=== PATIENT | female | born 1935 | race Caucasian/White ===

== ENCOUNTER 2023-12-01 11:58 | Day surgery (SDC) | payer MEDICARE, MEDICAID ==
[2023-11-28 16:21] LABS: BASOPHILS % (AUTO) 0.5 % (0-1); EOSINOPHILS # (AUTO) 0.2 X10'3 (0-0.9); EOSINOPHILS % (AUTO) 3.2 % (0-6); LYMPHOCYTES # (AUTO) 2.2 X10'3 (1.1-4.8); LYMPHOCYTES % (AUTO) 36.5 % (21-51); MEAN CORPUSCULAR HEMOGLOBIN 29.9 PG (27.0-31.0); MEAN CORPUSCULAR HGB CONC 34.3 g/dL (33.0-36.5); MEAN CORPUSCULAR VOLUME 87.4 FL (78-98); MEAN PLATELET VOLUME 7.7 FL (7.4-10.4); MONOCYTES # (AUTO) 0.5 X10'3 (0-0.9); NEUTROPHILS # (AUTO) 3.1 X10'3 (1.8-7.7); NEUTROPHILS % (AUTO) 50.8 % (42-75); PRE OP HEMATOCRIT 39.5 % (35.0-45.0); PRE OP HEMOGLOBIN 13.5 g/dL (12.0-16.0); PRE OP PLATELET COUNT 226 X10'3 (140-440); PRE OP WHITE BLOOD COUNT 6.1 10'3 (4.8-10.8); RED BLOOD COUNT 4.52 X10'6 (4.20-5.60); RED CELL DISTRIBUTION WIDTH 15.5 % (11.5-14.5)
[2023-11-28 16:38] LABS: ALBUMIN 4.2 G/DL (3.4-5.0); ALBUMIN/GLOBULIN RATIO 1.1 (1.1-1.5); ALKALINE PHOSPHATASE 79 IU/L (46-116); BLOOD UREA NITROGEN 27 MG/DL (7-18); BUN/CREATININE RATIO 28.7 (10.0-20.0); CALCIUM 9.7 MG/DL (8.5-10.1); CHLORIDE 103 MMOL/L (99-107); CREATININE 0.94 MG/DL (0.40-0.90); PRE OP ALT 26 U/L (30-65); PRE OP ANION GAP 9 (8-16); PRE OP AST 20 U/L (10-37); PRE OP BILIRUB, TOTAL 0.6 MG/DL (0.0-1.0); PRE OP GLUCOSE 106 MG/DL (70-104); PRE OP SODIUM 140 MMOL/L (135-145); TOTAL CARBON DIOXIDE 28.1 MMOL/L (24-32); TOTAL PROTEIN 8.2 G/DL (6.4-8.2); eGFR 56 ML/MIN
[2023-11-28 16:39] LABS: PRE OP POTASSIUM 3.3 MMOL/L (3.4-5.1)
[~2023-12-01] VITALS: Ht 160 cm; Wt 90.7 kg
[2023-12-01] VITALS (14 sets, daily range): BP systolic 121–139; BP diastolic 58–67; PULSE 60–66; RESP 12–20; TEMP 98.4; O2SAT 92–100
[2023-12-01] MEDS: cefazolin 2gm/D5W 100mL 100 ML IV ONE (05:30)
[~2023-12-01 11:58] MED LIST: AMLO5TAB16 PO; DOCUMENT DATE & TIME OF BETA-BLOCKER PO ONE; FURO20TA4 PO; HYDR12.55 PO; LEVO100T9 PO; MELO-102 PO; METO50TA16 PO; OLME40TA18 PO; POTA20PA40 PO; PRAV20TA4 PO; ringers solution, lacted 1,000 ML IV SCH
[2023-12-01] MEDS ORDERED: morphine 2 MG/ML inj. syringe IV PRN (12:35)
[2023-12-01] MEDS ORDERED: hydrALAZINE 20mg/ml inj. IV PRN (12:35)
[2023-12-01] MEDS ORDERED: ondansetron/PF 4mg/2ml inj IV PRN (12:35)
[2023-12-01] MEDS ORDERED: proCHLORperazine 10 MG/2 ml inj IV PRN (12:35)
[2023-12-01] MEDS ORDERED: acetaminophen 1,000mg/100ml IV 100 ML IV ONE (12:35)
[2023-12-01] MEDS ORDERED: labetalol 20mg/4ml (5mg/ml) syringe IV PRN (12:35)
[2023-12-01] MEDS ORDERED: morphine 4 MG/ML inj SYRINge IV PRN (12:35)
[2023-12-01] MEDS ORDERED: meperidine/PF 25mg/ml syringe IV PRN ×2 (12:35)
[2023-12-01] MEDS: famotidine 20mg tablet PO ONE (12:51)
[2023-12-01] MEDS: ringers solution, lacted 1,000 ML IV SCH (12:52)
[2023-12-01] MEDS ORDERED: LIDOcaine 1% (10mg/ml)w/preservative inj. 20ml MDV ONE (12:55)
[2023-12-01 13:26] LABS: ISTAT CREATININE 0.8 mg/dL (0.6-1.1); ISTAT HGB 12.2 g/dl (12.0-16.0); ISTAT IONIZED CALCIUM 1.21 mmol/L (1.03-1.32); ISTAT K 3.4 mmol/L (3.5-5.1); POC BUN/CREATININE RATIO 27.5 (6.6-38.0)
[2023-12-01] MEDS ORDERED: sevoflurane 250ml liquid IH ONE (13:27)
[2023-12-01] MEDS ORDERED: midazolam 1 mg/ML 2ml injection ONE (13:29)
[2023-12-01] MEDS ORDERED: fentaNYL /PF 50mcg/ml 5ml ampule ONE (13:30)
[2023-12-01] MEDS ORDERED: propofol inj 20 ML IV ONE (13:32)
[2023-12-01] MEDS ORDERED: LIDOcaine 2% (20mg/ml) 5ml vial ONE (13:32)
[2023-12-01] MEDS ORDERED: dexamethasone sod phosphate 4mg/ml inj. ONE (13:47)
[2023-12-01] MEDS ORDERED: ondansetron/PF 4mg/2ml inj ONE (13:47)
[2023-12-01] MEDS ORDERED: 0.9 % SODIUM CHLORIDE 10 ML VIAL ONE (14:04)
[2023-12-01] MEDS ORDERED: ePHEDrine 50MG/ML INJ. ONE (14:04)
[2023-12-01] MEDS: methylene blue (5mg/ml) 50mg/10ml ampul IV ONE (14:24)
[2023-12-01] MEDS: BUPIVACAINE liposomal/PF 13.3 MG/ML vial IM ONE (14:25)
[2023-12-01] MEDS: BUPIVAcaine 2.5mg/ml inj 50ml vial (contains preservative) ONE (14:25)
== END 2023-12-01 17:07 | disposition home or self-care (01) ==
LOC: PRE-OP 11:58 → PAS 17:07
PROVIDERS: ATTEND Surgery
DX: D05.12 Intraductal carcinoma in situ of left breast (principal); I10 Essential (primary) hypertension; E78.5 Hyperlipidemia, unspecified; E89.0 Postprocedural hypothyroidism; M19.90 Unspecified osteoarthritis, unspecified site; Z79.890 Hormone replacement therapy; Z79.899 Other long term (current) drug therapy; Z90.49 Acquired absence of other specified parts of digestive tract; Z96.642 Presence of left artificial hip joint; Z96.653 Presence of artificial knee joint, bilateral; Z98.890 Other specified postprocedural states; Z88.6 Allergy status to analgesic agent; Z88.8 Allergy status to other drugs, medicaments and biological substances
CPT/HCPCS: 19301; 36415; 76098; 80047; 80053; 82948; 84132; 85025; 93005; A4215; A4618; A6258; A6402; A7000; J0690; J1100; J2001; J2250; J2405; J2704; J3010; J3490; J7030; J7120; Q9968; Z7506; Z7508; Z7512; Z7610; A6449; C9290